=== PATIENT | female | born 1970 | race Caucasian/White ===

== ENCOUNTER 2016-09-03 03:05 | Emergency (ER) | payer SELFPAY ==
[~2016-09-03 03:05] MED LIST: BACT800T5 PO; CEPH500T PO; CLIN1CAP5 PO; MACR100C PO
[2016-09-03 03:10] VITALS: BP 114/63; PULSE 75; RESP 18; TEMP 97.9; O2SAT 98
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
== END 2016-09-03 03:23 | disposition home or self-care (01) ==
LOC: NEPE 03:05
DX: F10.129 Alcohol abuse with intoxication, unspecified (principal); Z76.5 Malingerer [conscious simulation]
CPT/HCPCS: 99283

== ENCOUNTER 2017-03-07 14:55 | Emergency (ER) | payer SELFPAY ==
[~2017-03-07] VITALS: Ht 152.4 cm; Wt 48.0 kg
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
[2017-03-07 15:07] VITALS: BP 116/77; PULSE 112; RESP 20; TEMP 98; O2SAT 99
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
--- NOTE | 2017-03-07 15:35 | RADRPT ---
EXAM DATE/TIME: 03/07/2017 15:15 [facility] COMPARISON: CHEST SINGLE AP, September 07, 2015, 23:01. INDICATIONS : Chest and rib pain. MEDICAL HISTORY : None. SURGICAL HISTORY : None. ENCOUNTER: Initial ACUITY: 1 day PAIN SCORE: 0/10 LOCATION: Bilateral chest FINDINGS: A single view of the chest demonstrates the lungs to be symmetrically aerated without evidence of mas s, infiltrate or effusion. The cardiomediastinal contours are unremarkable. Osseous structures are intact. CONCLUSION: No acute cardiopulmonary process. Goldy Dalton MD on March 07, 2017 at 15:33 Board Certified Radiologist. This report was verified electronically.
== END 2017-03-07 18:34 | disposition left against medical advice (07) ==
LOC: NED 14:55
DX: S49.91XA Unspecified injury of right shoulder and upper arm, initial encounter (principal); R07.81 Pleurodynia; X58.XXXA Exposure to other specified factors, initial encounter
CPT/HCPCS: 71010; 73030; 99281

== ENCOUNTER 2017-05-07 01:10 | Emergency (ER) | payer SELFPAY ==
[~2017-05-07] VITALS: Ht 160 cm; Wt 50.0 kg
[2017-05-07] MEDS ORDERED: NALOXONE HCL 0.4 MG/ML AMP IV PUSH ONE (02:30)
[2017-05-07] MEDS ORDERED: SODIUM CHLOR 0.9% 1000 ML INJ 1,000 ML IV ONE (02:30)
[2017-05-07] MEDS ORDERED: POTASSIUM CHLORIDE 25 MEQ EFFERVESCENT TAB PO ONE (03:22)
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
[2017-05-07 04:05] VITALS: BP 93/68; PULSE 95; RESP 16; TEMP 98.1; O2SAT 98
[2017-05-07 04:09] VITALS: PULSE 81; O2SAT 97
[2017-05-07 04:16] LABS: BICARBONATE 26.8 MEQ/L (21.0-32.0)
[2017-05-07 04:17] LABS: POTASSIUM 2.9 MEQ/L (3.5-5.1)
[2017-05-07 04:36] LABS: AUTOMATED NEUTROPHIL # 2.5 TH/MM3 (1.8-7.7); BASOPHIL % 0.7 % (0.0-2.0); EOSINOPHIL # 0.2 TH/MM3 (0-0.4); EOSINOPHIL % 3.1 % (0.0-4.0); HEMO FLAGS DIFF FINAL; LYMPH % 46.7 % (9.0-44.0); LYMPHOCYTE # 2.9 TH/MM3 (1.0-4.8); MEAN CELL VOLUME 95.6 FL (80.0-100.0); MEAN CORPUSCULAR HEMOGLOBIN 32.7 PG (27.0-34.0); MEAN CORPUSCULAR HGB CONC 34.2 % (32.0-36.0); MONO % 8.3 % (0.0-8.0); NEUT % 41.2 % (16.0-70.0); PLATELET COUNT 205 TH/MM3 (150-450); RED CELL DISTRIBUTION WIDTH 13.2 % (11.6-17.2); WHITE BLOOD COUNT 6.2 TH/MM3 (4.0-11.0)
[2017-05-07] MEDS ORDERED: POTA1TAB4 PO (05:22)
[2017-05-07 09:36] VITALS: BP 126/78
== END 2017-05-07 09:37 | disposition home or self-care (01) ==
LOC: NEPC 01:10
DX: F19.10 Other psychoactive substance abuse, uncomplicated (principal); E87.6 Hypokalemia
CPT/HCPCS: 80048; 80307; 82550; 83605; 85025; 96374; 99284; J2310; J7030

== ENCOUNTER 2017-11-04 09:47 | Emergency (ER) | payer SELFPAY ==
[~2017-11-04] VITALS: Ht 160 cm; Wt 60.0 kg
[~2017-11-04 09:47] MED LIST changes: -BACT800T5 PO; -CEPH500T PO; -CLIN1CAP5 PO; -MACR100C PO; +POTA1TAB4 PO
[2017-11-04 09:50] VITALS: BP 155/67; PULSE 108; RESP 20; TEMP 97.2; O2SAT 99
[2017-11-04] MEDS ORDERED: DALBAVANCIN INJ 1,500 MG in DEXTROSE 5% IN WATE 500 ML INJ 500 ML IV STA ×2 (10:19)
[2017-11-04] MEDS ORDERED: KETAMINE HCL 500 MG/10 ML VIAL OTHER STA (10:19)
[2017-11-04] MEDS ORDERED: ACETAMINOPHEN 1000 MG/100 ML 100 ML IV ONE (10:30)
[2017-11-04] MEDS ORDERED: MISCELLANEOUS PHARMACY INFORMATION XX ONE (10:30)
[2017-11-04] MEDS ORDERED: LIDOCAINE HCL 1% PF 30 ML VIAL ONE (10:36)
[2017-11-04 10:45] VITALS: BP 142/80; PULSE 123; RESP 16; O2SAT 100
[2017-11-04] MEDS ORDERED: LIDOCAINE HCL 1% 50 ML VIAL INFIL ONE (10:45)
[2017-11-04 10:55] LABS: AUTOMATED NEUTROPHIL # 8.8 TH/MM3 (1.8-7.7); BASOPHIL % 0.3 % (0.0-2.0); EOSINOPHIL # 0.2 TH/MM3 (0-0.4); EOSINOPHIL % 1.6 % (0.0-4.0); HEMATOCRIT 39.2 % (35.0-46.0); HEMOGLOBIN 13.2 GM/DL (11.6-15.3); LYMPH % 19.3 % (9.0-44.0); LYMPHOCYTE # 2.4 TH/MM3 (1.0-4.8); MEAN CELL VOLUME 93.6 FL (80.0-100.0); MEAN CORPUSCULAR HEMOGLOBIN 31.4 PG (27.0-34.0); MEAN CORPUSCULAR HGB CONC 33.6 % (32.0-36.0); MONO % 7.4 % (0.0-8.0); MONOCYTE # 0.9 TH/MM3 (0-0.9); NEUT % 71.4 % (16.0-70.0); PLATELET COUNT 309 TH/MM3 (150-450); RED BLOOD COUNT 4.19 MIL/MM3 (4.00-5.30); RED CELL DISTRIBUTION WIDTH 13.3 % (11.6-17.2); WHITE BLOOD COUNT 12.3 TH/MM3 (4.0-11.0)
[2017-11-04] MEDS ORDERED: LORazepam 2 MG/ML VIAL ONE (10:56)
[2017-11-04 11:00] VITALS: BP 122/73; PULSE 138; RESP 24; O2SAT 100
[2017-11-04 11:03] VITALS: O2SAT 97
[2017-11-04 11:07] LABS: ALT (GPT) 19 U/L (10-53); AST (GOT) 29 U/L (15-37); BICARBONATE 28.5 MEQ/L (21.0-32.0); BLOOD UREA NITROGEN 3 MG/DL (7-18); CALCIUM 8.5 MG/DL (8.5-10.1); CHLORIDE 96 MEQ/L (98-107); CREATININE 0.57 MG/DL (0.50-1.00); GLOMERULAR FILTRATION RATE 115 ML/MIN (>89); GLUCOSE,RANDOM 83 MG/DL (74-106); SODIUM (NA) 132 MEQ/L (136-145)
[2017-11-04 11:08] LABS: ALKALINE PHOSPHATASE 100 U/L (45-117); TOTAL BILIRUBIN ADULT 0.4 MG/DL (0.2-1.0); TOTAL PROTEIN 8.2 GM/DL (6.4-8.2)
--- NOTE | 2017-11-04 11:21 | PD ---
HPI Chief Complaint: Skin Problem Time Seen by Provider: 10:09 Travel History International Travel<30 days: No Contact w/Intl Traveler<30days: No Traveled to known affect area: No History of Present Illness HPI 47-year-old woman, history of IV drug use, active, presents emerged from an abscess in the right wrist. States been worsening over the past couple days. States she injected there. She has had previous similar symptoms in the past. Some subjective chills. No other complaints. History Past Medical History Narrative Medical Possible hep C Active IV drug use Tetanus Vaccination: < 5 Years Influenza Vaccination: No : 6 Para: 3 Dilation and Curettage (D&C): Yes (2006) Social History Alcohol Use: Yes (DAILY) Tobacco Use: Yes (08/01) Allergies-Medications (Allergen,Severity, Reaction): Coded Allergies: ibuprofen (Unverified Allergy, Severe, burn, itch, 11/04/17) naproxen (Unverified Allergy, Severe, SWELLING THROAT, BURNING SENSATION, 11/04/17) methadone (Unverified Allergy, Intermediate, Itching, 11/04/17) metronidazole (Unverified Allergy, Intermediate, hives, 11/04/17) amoxicillin (Unverified Allergy, Mild, HIVES, 11/04/17) gabapentin (Unverified Allergy, Mild, HIVES, 11/04/17) tramadol (Unverified Adverse Reaction, Severe, PANIC ATTACKS, 11/04/17) Reported Meds & Prescriptions Reported Meds & Active Scripts Active No Active Prescriptions or Reported Medications Review of Systems Except as stated in HPI: all other systems reviewed are Neg Physical Exam Narrative GENERAL: 47-year-old woman, significant pain, writhing in bed. SKIN: Focused skin assessment warm/dry. HEAD: Atraumatic. Normocephalic. EYES: Pupils equal and round. No scleral icterus. No injection or drainage. ENT: No nasal bleeding or discharge. Mucous membranes pink and moist. NECK: Trachea midline. No JVD. CARDIOVASCULAR: Regular rate and rhythm. No murmur appreciated. RESPIRATORY: No accessory muscle use. Clear to auscultation. Breath sounds equal bilaterally. GASTROINTESTINAL: Abdomen soft, non-tender, nondistended. Hepatic and splenic margins not palpable. MUSCULOSKELETAL: No obvious deformities. Abscess to the right wrist with surrounding edema erythema warmth. Abscesses in the focal point of the radial styloid. Limited range of motion of the hand. Diffuse edema in the hand. NEUROLOGICAL: Awake and alert. No obvious cranial nerve deficits. Motor grossly within normal limits. Normal speech. PSYCHIATRIC: Appropriate mood and affect; insight and judgment normal. Data Data Last Documented VS Vital Signs Date Time Temp Pulse Resp B/P (MAP) Pulse Ox O2 Delivery O2 Flow Rate FiO2 11/04/17 11:03 97 2.00 11/04/17 11:00 138 24 122/73 (89) Nasal Cannula 11/04/17 09:50 97.2 Orders Orders Complete Blood Count With Diff (11/04/17 10:19) Comprehensive Metabolic Panel (11/04/17 10:19) Blood Culture (11/04/17 10:19) Case Management Consult (11/04/17 ) [facility] [place] [facility] Information ([facility] [place] [facility] (11/04/17 10:30) Dalbavancin Inj (Dalvance Inj) (11/04/17 10:19) Alan Bandage (11/04/17 10:19) Elevate (11/04/17 10:19) Document (11/04/17 10:19) Measurements (11/04/17 10:19) Ed Poc Ultrasound (11/04/17 ) Ketamine Inj (Ketalar Inj) (11/04/17 10:19) Acetaminophen 1000 Mg/100 Ml (Ofirmev 10 (11/04/17 10:30) Lidocaine 1% Inj (50 Ml) (Xylocaine 1% I (11/04/17 10:45) Lidocaine Pf 1% Inj (Xylocaine-Mpf 1% In (11/04/17 10:36) Lorazepam Inj (Ativan Inj) (11/04/17 10:56) Wound Culture And Gram Stain (11/04/17 11:13) Labs Laboratory Tests Test 11/04/17 10:20 White Blood Count 12.3 TH/MM3 Red Blood Count 4.19 MIL/MM3 Hemoglobin 13.2 GM/DL Hematocrit 39.2 % Mean Corpuscular Volume 93.6 FL Mean Corpuscular Hemoglobin 31.4 PG Mean Corpuscular Hemoglobin Concent 33.6 % Red Cell Distribution Width 13.3 % Platelet Count 309 TH/MM3 Mean Platelet Volume 7.0 FL Neutrophils (%) (Auto) 71.4 % Lymphocytes (%) (Auto) 19.3 % Monocytes (%) (Auto) 7.4 % Eosinophils (%) (Auto) 1.6 % Basophils (%) (Auto) 0.3 % Neutrophils # (Auto) 8.8 TH/MM3 Lymphocytes # (Auto) 2.4 TH/MM3 Monocytes # (Auto) 0.9 TH/MM3 Eosinophils # (Auto) 0.2 TH/MM3 Basophils # (Auto) 0.0 TH/MM3 CBC Comment DIFF FINAL Differential Comment Blood Urea Nitrogen 3 MG/DL Creatinine 0.57 MG/DL Random Glucose 83 MG/DL Total Protein 8.2 GM/DL Albumin 3.0 GM/DL Calcium Level 8.5 MG/DL Alkaline Phosphatase 100 U/L Aspartate Amino Transf (AST/SGOT) 29 U/L Alanine Aminotransferase (ALT/SGPT) 19 U/L Total Bilirubin 0.4 MG/DL Sodium Level 132 MEQ/L Potassium Level 3.8 MEQ/L Chloride Level 96 MEQ/L Carbon Dioxide Level 28.5 MEQ/L Anion Gap 8 MEQ/L Estimat Glomerular Filtration Rate 115 ML/MIN MDM Medical Decision Making Medical Screen Exam Complete: Yes Emergency Medical Condition: Yes Interpretation(s) LABS: CBC remarkable for white count 12.3 thousand CMP general unremarkable. Differential Diagnosis Abscess, cellulitis, sepsis, other Narrative Course Medical decision making 47-year-old woman with soft tissue abscess from IV drug use. This is drained at the bedside with use of ketamine for procedural sedation. Patient tolerated well. Was wrapped up. She will be given IV Dalvance. Return in 2 days for wound check. Procedures Procedure Narrative After the risks and benefits were discussed the following procedure was performed: MODERATE SEDATION: The patient was placed on a geothermal electrical engineer and pulse oximetry. An ambu bag and suction was immediately available at bedside. The patient was monitored by the nurse. Oxygen saturation, heart rate and blood pressure were monitored. Procedural sedation was acheived using 100 mg of ketamine. The patient was observed until awake and alert. Procedural Sedation time in attendance was 20 minutes. INCISION AND DRAINAGE OF ABSCESS: The area was prepped and was sterilely draped. A subcutaneous wheal of % Xylocaine 1 with a total number 7 mL was used to anesthetize the area. The area was properly anesthetized. A number 11 scalpel was used to make a 1.5-cm incision across the area of the abscess. Cultures were obtained. Half inch iodoform packing was placed in the wound. Sterile dressing applied. Patient advised to have packing removed in two days. Diagnosis Primary Impression: Abscess of right hand Additional Impression: Polysubstance abuse Patient Instructions: General Instructions Additional Instructions: Keep arm elevated. Use ibuprofen or acetaminophen as needed for pain. Avoid illicit drugs, and avoid IV drug use. Return the emergency department 48 hours for wound check. Med/Other Pt SpecificInfo: No Change to Meds Scripts No Active Prescriptions or Reported Meds Disposition: 01 DISCHARGE HOME Condition: Stable Carlin Ca MD Nov 04, 2017 11:21
== END 2017-11-04 15:28 | disposition home or self-care (01) ==
LOC: NEPE 09:47
DX: L02.511 Cutaneous abscess of right hand (principal); B95.62 Methicillin resistant Staphylococcus aureus infection as the cause of diseases classified elsewhere; F17.200 Nicotine dependence, unspecified, uncomplicated
CPT/HCPCS: 10061; 80053; 85025; 86403; 87040; 87070; 87186; 96365; 96375; 99152; 99153; 99285; J0131; J0875; J2060; J7060